=== PATIENT | female | born 1980 | race Caucasian/White ===

== ENCOUNTER → 2020-10-09 | Outpatient (CLI) | payer OTHER ==
--- NOTE | 2020-10-13 14:10 | MM ---
Reason for exam: screening (asymptomatic). History: Taking hormonal contraceptives beginning at age 20. Physical Findings: A clinical breast exam by your physician is recommended on an annual basis and results should be correlated with mammographic findings. MG Screening Mammo w CAD Bilateral CC and MLO view(s) were taken. There are scattered fibroglandular densities. Benign intramammary node lateral right breast. Subtle nodularity central posterior left CC view could represent an island of tissue as there is no MLO correlate. 6 month follow up mammogram recommended. ASSESSMENT: Probably benign, BI-RAD 3 RECOMMENDATION: Follow-up diagnostic mammogram of the left breast in 6 months. (3D)
== END | disposition home or self-care (01) ==
LOC: RADMAMWWP 12:48
PROVIDERS: ATTEND Obstetrics & Gynecology
DX: Z12.31 Encounter for screening mammogram for malignant neoplasm of breast (principal); Z79.3 Long term (current) use of hormonal contraceptives
CPT/HCPCS: 77067

== ENCOUNTER → 2021-04-14 | Outpatient (CLI) | payer BC ==
--- NOTE | 2021-04-14 09:26 | MM ---
Reason for exam: follow-up at short interval from prior study. Last mammogram was performed 6 months ago. History: Taking hormonal contraceptives beginning at age 20. Physical Findings: Nurse did not find any significant physical abnormalities on exam. MG Diagnostic Mammo LT w CAD CC and MLO view(s) were taken of the left breast. Prior study comparison: October 09, 2020, bilateral MG screening mammo w CAD. There is no discrete abnormality. These results were verbally communicated with the patient and result sheet given to the patient on 04/14/21. ASSESSMENT: Benign, BI-RAD 2 RECOMMENDATION: Return to routine screening mammogram schedule for both breasts. Back on schedule.
== END | disposition home or self-care (01) ==
LOC: RADMAMWWP 08:05
PROVIDERS: ATTEND Family Medicine
DX: R92.8 Other abnormal and inconclusive findings on diagnostic imaging of breast (principal)
CPT/HCPCS: 77065

== ENCOUNTER → 2023-12-23 | Outpatient (CLI) | payer BC ==
--- NOTE | 2023-12-23 14:01 | MM ---
Reason for Exam: Screening (asymptomatic). Last mammogram was performed 1 year(s) and 1 month(s) ago. Patient History: Menarche at age 14. First Full-Term at age 32. Late child-bearing (after 32). Premenopausal. Currently using Hormonal Contraceptives, starting at age 20. Mother had breast cancer, age 74. Last menstrual period: 12/16/2023 Risk Values: Janett 5 year model risk: 1.2%. NCI Lifetime model risk: 19.1%. Prior Study Comparison: 10/09/2020 Bilateral Screening Mammogram, [facility]. 04/14/2021 Left Diagnostic Mammogram, [facility]. 12/03/2022 Bilateral MG screening mammo w CAD, [facility]. Tissue Density: There are scattered areas of fibroglandular density. Findings: Analyzed By CAD. Right breast: There is no suspicious group of microcalcifications or new suspicious mass. Left breast: There is no suspicious group of microcalcifications or new suspicious mass. Overall Assessment: Negative, BI-RAD 1 Management: Screening Mammogram of both breasts in [address] [facility] will attempt to contact patient to return for supplemental views and ultrasound if indicated. Patient should continue monthly self-breast exams. A clinical breast exam by your physician is recommended on an annual basis. This exam should not preclude additional follow-up of suspicious palpable abnormalities. Note on Janett scores and lifetime risk: 1. A Janett score greater than 3% is considered moderate risk. If this is the case, consider specialist referral to assess eligibility for a risk reducing agent. 2. If overall lifetime risk for the development of breast cancer is 20% or higher, the patient may qualify for future screening with alternating mammogram and breast MRI. [facility], , 12/23/2023 1:59 PM. Electronically signed and approved by: Ramiro Hernandez DO
== END | disposition home or self-care (01) ==
LOC: RADMAMWWP 08:49
PROVIDERS: ATTEND Family Medicine
CPT/HCPCS: 77067